=== PATIENT | male | born 1995 | race African-American/Black ===

== ENCOUNTER 2024-11-03 19:54 | Emergency (ER) | payer MEDICAID ==
[~2024-11-03] VITALS: Ht 180.3 cm; Wt 70.0 kg
[2024-11-03 19:55] VITALS: BP 121/76; PULSE 101; RESP 18; TEMP 36.9; O2SAT 98
[2024-11-03 22:09] LABS: BASOPHILS % 0.2 % (0.0-2.0); HEMATOCRIT. 41.8 % (42.0-52.0); HEMOGLOBIN. 13.8 g/dL (14.0-18.0); LYMPHOCYTES % 19.7 % (20.0-50.0); MEAN CORPUSCULAR HEMOGLOBIN 30.4 pg (28.0-32.0); MEAN CORPUSCULAR HGB CONC 33.1 g/dL (31.0-37.0); MEAN CORPUSCULAR VOLUME 91.8 fL (80.0-94.0); MONOCYTES % 9.3 % (2.0-8.0); NEUTROPHILS % 69.8 % (40.0-76.0); PLATELET 280 x1000/uL (130-400); RED BLOOD CELL COUNT 4.56 mill/uL (4.7-6.1); RED CELL DISTRIBUTION WIDTH 16.1 % (11.6-14.6); WHITE BLOOD COUNT 7.5 x1000/uL (4.5-11.0)
[2024-11-03 22:33] LABS: CHLORIDE 104 mEq/L (98-107); POTASSIUM 3.7 mEq/L (3.5-5.1); SODIUM 142 mEq/L (136-145)
[2024-11-03 22:35] LABS: CARBON DIOXIDE 28 mEq/L (21-32)
[2024-11-03 22:40] LABS: CREATININE 0.9 mg/dL (0.6-1.3); GLUCOSE 86 mg/dL (70-105)
[2024-11-03 22:41] LABS: UREA NITROGEN BLOOD 10 mg/dL (9-23)
[2024-11-03 22:42] LABS: ALANINE AMINOTRANSFERASE 15 IU/L (10-49); ALBUMIN 4.4 g/dL (3.2-4.8); ASPARTATE AMINOTRANSFERASE 18 IU/L (<34); BILIRUBIN DIRECT 0.3 mg/dL (<=3.0)
[2024-11-03 22:43] LABS: PROTEIN TOTAL 7.8 g/dL (6.0-8.3)
[2024-11-03] MEDS ORDERED: ONDANSETRON HCL 4MG TABLET PO ONE (23:15)
== END 2024-11-04 01:55 | disposition home or self-care (01) ==
LOC: ER 19:54
DX: A08.4 Viral intestinal infection, unspecified (principal); E11.9 Type 2 diabetes mellitus without complications
CPT/HCPCS: 36415; 80048; 80076; 85025; 99283

== ENCOUNTER 2024-11-04 07:43 | Emergency (ER) | payer MEDICAID ==
[~2024-11-04] VITALS: Ht 180.3 cm; Wt 77.0 kg
[2024-11-04 07:58] VITALS: BP 114/65; PULSE 98; RESP 16; TEMP 37; O2SAT 100
[2024-11-04 08:57] LABS: HEMATOCRIT 42.1 % (42.0-52.0); HEMOGLOBIN 13.7 g/dL (14.0-18.0); MEAN CORPUSCULAR HEMOGLOBIN 29.8 pg (28.0-32.0); MEAN CORPUSCULAR HGB CONC 32.5 g/dL (31.0-37.0); MEAN CORPUSCULAR VOLUME 91.7 fL (80.0-94.0); PLATELET 280 x1000/uL (130-400); RED BLOOD CELL COUNT 4.59 mill/uL (4.7-6.1); RED CELL DISTRIBUTION WIDTH 16.4 % (11.6-14.6)
[2024-11-04 09:08] LABS: CHLORIDE 104 mEq/L (98-107); POTASSIUM 3.8 mEq/L (3.5-5.1); SODIUM 139 mEq/L (136-145)
[2024-11-04 09:09] LABS: CALCIUM 10.1 mg/dL (8.7-10.4); CARBON DIOXIDE 26 mEq/L (21-32)
[2024-11-04 09:14] LABS: GLUCOSE 102 mg/dL (70-105); UREA NITROGEN BLOOD 10 mg/dL (9-23)
[2024-11-04 09:15] LABS: ETHANOL BLOOD < 10 mg/dL (<10)
== END 2024-11-04 10:12 | disposition home or self-care (01) ==
LOC: ER 07:43
DX: R11.2 Nausea with vomiting, unspecified (principal); E11.9 Type 2 diabetes mellitus without complications
CPT/HCPCS: 36415; 80048; 80320; 85027; 99283; G0480